=== PATIENT | male | born 1935 | race Caucasian/White ===

== ENCOUNTER 2016-08-30 23:45 | Emergency (ER) | payer OTHER ==
[~2016-08-30] VITALS: Ht 182.9 cm; Wt 86.2 kg
[~2016-08-30 23:45] MED LIST: ALBU8.5H2 IH; ATEN50TA PO; CEPH500C2 PO; CLON1PAT2 TD; CLOP75TA2 PO; COLC0.6T69 PO; GUAI118S13 PO; HYDR100T27 PO; HYDR25TA4 PO; LOSA50TA21 PO; NIFE30TA89 PO; NIFE60TA69 PO; SIMV10TA6 PO; SPIR25TA4 PO; TAMS-12 PO; TRAZ-144 PO
--- NOTE | 2016-08-30 23:45 | NUR ---
[facility] IN FULL CARDIAC ARREST, GIVEN BICARB X1, EPI X4, SHOCK [id number]. PER EMT LAST SEEN FINE WAS X 1 HR AGO PRIOR TO ARRIVAL. CHEST COMPRESSION WAS STARTED ON SCENE @ 2330 AND ONGOING UNTIL ARRIVAL. DR ANDERSON IN RM 5 AWAITING PT. NO SPOTANEOUS RETURN OF PULSE OR BREATHING. CPR CONTINUED. PLACED PT ON MONITOR PLACED PADS. ASYSTOLE ON MONITOR. DR ANDERSON TO INTUBATE.
--- NOTE | 2016-08-30 23:47 | NUR ---
PT INTUBATED W/ ETT 7.5 LIP OF 23.
--- NOTE | 2016-08-30 23:48 | NUR ---
2348 - EPI GIVEN VIA LL LEG IO 235 - AGONAL , ATROPINE GIVEN - IN POSITION AND FIXED PUPILS 2351 - ASYSTOLE
--- NOTE | 2016-08-30 23:54 | NUR ---
DR ANDESRON PRONOUNCE @ 8299.
--- NOTE | 2016-08-31 00:10 | NUR ---
SEE CODE SHEET FOR DR ANDERSON'S WRITTEN ORDERS FOR EPI AND ATROPINE
--- NOTE | 2016-08-31 00:15 | NUR ---
PT BROUGHT BY EMT AND SECURITY TO [facility]
[2016-08-31 00:20] VITALS: BP 0/0
--- NOTE | 2016-08-31 07:30 | NUR ---
CALLED [facility], SPOKE WITH DON. STATE THAT THEY WILL NOT PURSUE WITH THE CASE. CASE NO [id number].
== END 2016-08-31 00:15 | disposition expired ==
LOC: ER 23:46
DX: I46.9 Cardiac arrest, cause unspecified (principal); I50.9 Heart failure, unspecified; Z95.2 Presence of prosthetic heart valve; Z46.82 Encounter for fitting and adjustment of non-vascular catheter; Z88.8 Allergy status to other drugs, medicaments and biological substances
CPT/HCPCS: 31500; 92950; 99285; A4606